=== PATIENT | male | born 1990 | race African-American/Black ===

== ENCOUNTER 2023-10-02 17:07 | Emergency (ER) | payer MEDICAID ==
[~2023-10-02] VITALS: Ht 198.1 cm; Wt 83.6 kg
[2023-10-02 18:15] VITALS: TEMP 98.2
[2023-10-02 21:07] LABS: PH,URINE DRUG SCREEN 7.5 (5.0-8.0)
[2023-10-02 21:22] LABS: ALCOHOL, URINE DRUG SCREEN NEGATIVE (NEGATIVE); AMPHET/METH SCREEN,URINE NEGATIVE (NEGATIVE); BARBITURATE SCREEN, URINE NEGATIVE (NEGATIVE); BENZODIAZEPINES SCREEN,URINE NEGATIVE (NEGATIVE); CANNABINOID SCREEN,URINE NEGATIVE (NEGATIVE); COCAINE SCREEN,URINE NEGATIVE (NEGATIVE); METHADONE SCREEN, URINE NEGATIVE (NEGATIVE); OPIATE SCREEN,URINE NEGATIVE (NEGATIVE); PHENCYCLIDINE SCREEN,URINE NEGATIVE (NEGATIVE)
[2023-10-02 21:49] VITALS: BP 126/76; PULSE 75; RESP 16
[2023-10-02] MEDS ORDERED: NALO4SPR NASAL (22:27)
[2023-10-02] MEDS: METHADONE HCL 10 MG TABLET PO ONE (22:40)
== END 2023-10-02 22:55 | disposition home or self-care (01) ==
LOC: EMS 17:09
DX: F11.20 Opioid dependence, uncomplicated (principal)
CPT/HCPCS: 80307; 99283

== ENCOUNTER 2023-11-25 17:09 | Emergency (ER) | payer MEDICAID ==
[~2023-11-25] VITALS: Ht 195.6 cm; Wt 95.0 kg
[~2023-11-25 17:09] MED LIST: NALO4SPR NASAL
[2023-11-25 17:39] VITALS: BP 124/94; PULSE 76; RESP 18; TEMP 98.6
== END 2023-11-25 18:11 | disposition still patient (30) ==
LOC: EMS 17:09
DX: R11.0 Nausea (principal); Z53.21 Procedure and treatment not carried out due to patient leaving prior to being seen by health care provider
CPT/HCPCS: 99281; Z7502